=== PATIENT | female | born 1965 | race Caucasian/White ===

== ENCOUNTER 2018-11-30 13:03 | Outpatient (CLI) | payer MEDICAID, SELFPAY ==
[2018-11-30 13:23] LABS: Abs Immature Grans 0.01 k/cumm (0.0-0.09); Absolute Basophil Count 0.02 k/cumm (0.0-0.2); Absolute Eosinophil Count 0.15 k/cumm (0.0-0.7); Absolute Lymphocyte Count 1.77 k/cumm (1.2-3.4); Absolute Monocyte Count 0.58 k/cumm (0.11-0.7); Basophils % 0.3; HCT 40.2 % (36.0-46.0); HGB 13.9 g/dL (12.0-15.5); Immature Grans % 0.1; Lymphocytes % 23.5; Mean Corp. HGB Concentration 34.6 g/dL (32.0-36.0); Mean Corpuscular Hemoglobin 31.7 pg (27.0-33.0); Mean Corpuscular Volume 91.8 fL (80-95); Mean Platelet Volume 10.4 fL (8.0-11.0); Monocytes % 7.7; Neutrophils % 66.4; Platelet Count 186 x1000/uL (130-400); RBC 4.38 m/cumm (4.00-5.20); RBC Distribution Width 12.4 % (11.7-14.6); White Blood Cell Count 7.53 k/cumm (4.4-10.8)
[2018-11-30 13:54] LABS: ALT 34 U/L (12-78); AST 27 U/L (15-37); Albumin 3.8 g/dL (3.4-5.0); Alkaline Phosphatase 99 U/L (46-116); Anion Gap 8.4 mmol/L (3-11); BUN 14 mg/dL (7-18); Bilirubin, Total 0.7 mg/dL (0.2-1.0); CO2 27.6 mmol/L (21.0-32.0); CREATININE 1.01 mg/dL (0.55-1.02); Calcium 9.4 mg/dL (8.5-10.1); Chloride 103 mmol/L (98-107); Cholesterol 270 mg/dL (50-200); Estimated GFR 57.56 (mL/min/1.73m2); Glucose 129 mg/dL (70-100); HDL Cholesterol 45 mg/dL (40-60); LDL CHOLESTEROL 201 mg/dL (<100); Potassium 3.8 mmol/L (3.5-5.1); Sodium 139 mmol/L (136-145); Total Protein 7.4 g/dL (6.4-8.2); Triglyceride 119 mg/dL (30-150)
== END 2018-11-30 13:23 ==
PROVIDERS: PCP Nurse Practitioner; Visit Provider Nurse Practitioner Family
DX: E78.5 Hyperlipidemia, unspecified (principal); N28.1 Cyst of kidney, acquired; R00.2 Palpitations; F32.9 Major depressive disorder, single episode, unspecified
CPT/HCPCS: 36415; 80053; 80061; 83721; 85025

== ENCOUNTER 2018-12-07 16:44 | Outpatient (REF) | payer MEDICAID, SELFPAY ==
--- NOTE | 2018-12-07 16:10 | PAPFT_PTH ---
PATIENT: Chantelle Hay LOC: NCN #:[id number] AGE/SX: 53/F ROOM: RE12/07/[address]: Dusty Sanz : 1965 BED: DIS: 12/07/2018 SPEC #: [id number] RECD: 12/08/18 12:40 STATUS: TRACEY REQ #: [id number] BRENDA: 12/07/18 16:[address]: Dusty Sanz DEPT: [facility] Cytology RECD BY: Reid Lorenz Tissues: 1 - CX/ENDOCX FOR PAP SMEARS Procedures: PAP THIN PREP/[facility] Screening HPV DNA PROBE Comments: [id number]
== END 2018-12-07 17:04 ==
LOC: NCHCN 16:44
PROVIDERS: PCP Nurse Practitioner; Visit Provider Nurse Practitioner Family
DX: Z00.00 Encounter for general adult medical examination without abnormal findings (principal); Z12.4 Encounter for screening for malignant neoplasm of cervix; Z11.51 Encounter for screening for human papillomavirus (HPV)
CPT/HCPCS: 88142; 87624

== ENCOUNTER 2019-03-07 14:36 | Outpatient (REF) | payer MEDICAID, SELFPAY ==
[2019-03-07 18:44] LABS: Anion Gap 12.5 mmol/L (3-11); BUN 22 mg/dL (7-18); CO2 26.5 mmol/L (21.0-32.0); CREATININE 1.01 mg/dL (0.55-1.02); Calcium 9.5 mg/dL (8.5-10.1); Chloride 100 mmol/L (98-107); Estimated GFR 57.56 (mL/min/1.73m2); Glucose 104 mg/dL (70-100); Sodium 139 mmol/L (136-145)
[2019-03-07 18:54] LABS: Hemoglobin A1C 5.6 % (4.5-6.2)
[2019-03-07 19:25] LABS: PROTEIN 12.9 mg/dL
[2019-03-07 19:34] LABS: COMMENT (LAB VIEW ONLY) 146.82 mg/dL; COMMENT (LAB VIEW ONLY) 150.76 mg/dL; Microalb ug/mg Crea 5.2 ug/mg Cr; Prot/Crea Ur Ratio 0.08
== END 2019-03-07 14:56 ==
LOC: NCHCN 14:36
PROVIDERS: PCP Nurse Practitioner; Visit Provider Nurse Practitioner Family
DX: R73.03 Prediabetes (principal)
CPT/HCPCS: 80048; 82043; 82565; 82570; 83036; 84156

== ENCOUNTER 2019-05-30 00:35 | Outpatient (CLI) | payer MEDICAID, SELFPAY ==
--- NOTE | 2019-05-30 13:08 | DI.MAMMO_ITS ---
SYMPTOMS/DIAGNOSIS: SCREENING, [facility], Z00.00 BILATERAL SCREENING MAMMOGRAMS: Mammograms were interpreted according to the usual protocol including computer analysis with CAD system, tomosynthesis and C view imaging. Comparison is made with 2018. The breasts are composed of fatty density tissue, breast density category A. No suspicious masses or suspicious microcalcifications are seen. There has been no significant change. IMPRESSION: Category 1, negative mammogram. Yearly screening mammography is recommended. [facility] ASSESSMENT OF FINDINGS: Negative. Category 1. Patient will receive a letter notifying them of these results. BI-RAD category A. The breasts are almost entirely fatty.
== END 2019-05-30 00:55 ==
PROVIDERS: PCP Nurse Practitioner; Visit Provider Nurse Practitioner Family
DX: Z12.31 Encounter for screening mammogram for malignant neoplasm of breast (principal)
CPT/HCPCS: 77063; 77067

== ENCOUNTER 2019-10-02 19:24 | Outpatient (REF) | payer MEDICAID, SELFPAY ==
[2019-10-02 18:50] LABS: Anion Gap 13.7 mmol/L (3-11); BUN 25 mg/dL (7-18); CO2 24.3 mmol/L (21.0-32.0); CREATININE 0.97 mg/dL (0.55-1.02); Chloride 106 mmol/L (98-107); Glucose 125 mg/dL (74-106); Potassium 3.6 mmol/L (3.5-5.1); Sodium 144 mmol/L (136-145)
== END 2019-10-02 19:44 ==
LOC: NCHCN 19:24
PROVIDERS: PCP Nurse Practitioner; Visit Provider Nurse Practitioner Family
DX: R73.03 Prediabetes (principal); N28.1 Cyst of kidney, acquired; N18.3 Chronic kidney disease, stage 3 (moderate)
CPT/HCPCS: 80048

== ENCOUNTER 2019-10-09 13:47 | Outpatient (CLI) | payer MEDICAID, SELFPAY ==
--- NOTE | 2019-10-09 14:03 | DI.RAD_ITS ---
EXAM: XR KNEE LT 3V AP,LAT,JACKI INDICATION: LT KNEE JOINT PAIN, M25.562. COMPARISON: No exams were available for comparison TECHNIQUE: 2D digital imaging was performed. FINDINGS: The bones are intact and normally mineralized. No acute fracture or dislocation is present. Joint s paces are well maintained. Vascular calcifications are seen in the soft tissues. IMPRESSION: No acute abnormality.
== END 2019-10-09 14:07 ==
PROVIDERS: PCP Nurse Practitioner; Visit Provider Nurse Practitioner Family
DX: M25.562 Pain in left knee (principal)
CPT/HCPCS: 73562

== ENCOUNTER 2019-10-18 01:36 | Outpatient (CLI) | payer MEDICAID, SELFPAY ==
--- NOTE | 2019-10-18 14:55 | DI.US_ITS ---
EXAM: US LOWER EXTREMITY VENOUS LT CLINICAL HISTORY: LT KNEE JOINT PAIN M25.562, ? MTZ'S CYST. TECHNIQUE: Left lower extremity venous ultrasound performed using grayscale, color-flow, and spectra l Doppler analysis. COMPARISON: Previous for comparison. FINDINGS: The left common femoral, femoral and popliteal veins demonstrate normal compressibility, augmentation , and color Doppler. The posterior tibial vein is unremarkable. Saphenofemoral junction is unremarka ble. No evidence of a Mtz's cyst. IMPRESSION: No DVT.
== END 2019-10-18 01:56 ==
PROVIDERS: PCP Nurse Practitioner; Visit Provider Nurse Practitioner Family
DX: M25.562 Pain in left knee (principal)
CPT/HCPCS: 93971

== ENCOUNTER 2023-09-02 10:05 | Outpatient (REF) | payer MEDICAID, SELFPAY ==
[2023-09-02 16:44] LABS: ALT 27 U/L (14-59); AST 17 U/L (15-37); Alkaline Phosphatase 88 U/L (46-116); Anion Gap 11.5 mmol/L (3-11); BUN 30 mg/dL (7-18); Bilirubin, Total 0.5 mg/dL (0.2-1.0); CO2 26.5 mmol/L (21.0-32.0); CREATININE 1.2 mg/dL (0.55-1.02); Calcium 9.6 mg/dL (8.5-10.1); Calculated LDL 218 mg/dL (<100); Chloride 106 mmol/L (98-107); Cholesterol 304 mg/dL (<200); Glucose 137 mg/dL (74-106); HDL Cholesterol 64 mg/dL (40-60); Potassium 4.5 mmol/L (3.5-5.1); Sodium 144 mmol/L (136-145); Total Protein 7.4 g/dL (6.4-8.2); Triglyceride 113 mg/dL (<150)
== END 2023-09-02 10:06 | disposition home or self-care (01) ==
LOC: NCHCN 10:05
PROVIDERS: PCP Nurse Practitioner; Visit Provider Nurse Practitioner Family
DX: E78.5 Hyperlipidemia, unspecified (principal); Z13.6 Encounter for screening for cardiovascular disorders
CPT/HCPCS: 80053; 80061